=== PATIENT | female | born 1955 | race Caucasian/White ===

== ENCOUNTER → 2016-11-05 10:35 | Emergency (ER) | payer BC ==
[~2016-11-05 10:35] MED LIST: Aspirin Low Dose CHEW TAB* 81 MG PO ONE
[2016-11-05 11:20] LABS: Hematocrit 40 % (35-47); Hemoglobin 13.4 g/dl (12.0-16.0); Mean Corpuscular HGB Conc 34 g/dl (31-36); Mean Corpuscular Hemoglobin 34 pg (27-31); Mean Corpuscular Volume 99 fL (80-97); Mean Platelet Volume 9 um3 (7.4-10.4); Red Blood Count 4.01 10^6/ul (4.0-5.4); Red Cell Distribution Width 13 % (10.5-15)
[2016-11-05 11:22] LABS: Add Diff/Slide Review? Manual Diff Added; Comments Flag Yes
[2016-11-05 11:32] LABS: Albumin 4.2 g/dL (3.2-5.2); BUN/Creatinine Ratio 16.5 (8-20); Calcium 9.5 mg/dL (8.6-10.3); EGFR African American 94.8 (>60); EGFR Non-African American 73.7 (>60); Globulin 2.4 g/dL (2-4); Magnesium 2.3 mg/dL (1.9-2.7); Total Bilirubin 0.3 mg/dL (0.2-1.0); Total Protein 6.6 g/dL (6.4-8.9)
--- NOTE | 2016-11-05 11:35 | RAD ---
Indication: Chest pain. Single frontal view of the chest performed at 1108 hours was reviewed. Comparison is made with previous exam dated September 26, 2010. No mediastinal shift is noted. Heart is of normal size and configuration. Lung atkins appear clear. IMPRESSION: NO ACTIVE CARDIOPULMONARY DISEASE IS NOTED.
[2016-11-05 11:46] LABS: Add Path Review? YES; Eosinophils % 5 % (0-6); Immature Granulocytes 1 % (0-9); Neutrophil % 45 % (38-83); RBC Morphology Normal (Normal); Reactive Lymph % 3 % (0-6)
[2016-11-05 11:54] LABS: TSH (Thyroid Stimulating Horm) 1.6 mcIU/mL (0.34-5.60)
[2016-11-05 14:27] LABS: Urine Bacteria Absent (Absent); Urine Bilirubin Negative (Negative); Urine Glucose Negative (Negative); Urine Nitrite Negative (Negative)
[2016-11-05 15:09] VITALS: BP 106/63
--- NOTE | 2016-11-05 18:39 | ED ---
Hudson Lopez Thomas, scribed for Sreekanth Velazquez MD on 11/05/16 at 1059 . HPI Chest Pain - HPI Summary HPI Summary: The pt is a 61 y/o F presenting to the ED c/o CP that began today at 10:00 when she was sitting and reading an article about global warming. The episode of chest pain was intense for 3-5 minute and then gradually receded and it is resolved in the ED. The pain is described as sharp and a cramp. The pain did not migrate. The pain is aggravated and alleviated by nothing. The patient has treated the pain with nothing PLUG GROWER. Pt additionally c/o nausea (momentary). Pt denies diaphoresis, lightheadedness. She takes Lexapro 20mg. She drank quite a bit last night. PMHx: negative for cardiac disease. SHx: current smoker, weekly alcohol use. She is accompanied by her . - History of Current Complaint Chief Complaint: EDChestPainROMI Hx Obtained From: Patient, Family/Fx Artist - present Onset/Duration: Started Minutes Ago - onset today at 10:00, Resolved Timing: Lasting Minutes - 3-5 minutes duration Initial Severity: Severe Current Severity: None Pain Intensity: 0 Pain Scale Used: 0-10 Numeric Chest Pain Radiates: No Character: Tightness, Other: - Cramping Aggravating Factor(s): Nothing Alleviating Factor(s): Nothing Associated Signs and Symptoms: Positive: Chest Pain, Nausea - "momentary", Other : - NEG: lightheadedness. Negative: Diaphoresis - Allergy/Home Medications Allergies/Adverse Reactions: Allergies Allergy/AdvReac Type Severity Reaction Status Date / Time No Known Allergies Allergy Verified 10/06/15 16:18 PMH/Surg Hx/FS Hx/Imm Hx Previously Healthy: Yes Endocrine/Hematology History: Denies: Hx Diabetes Cardiovascular History: Denies: Hx Myocardial Infarction - Surgical History Surgery Procedure, Year, and Place: current smoker, hysterectomy Infectious Disease History: Denies: History Other Infectious Disease, Traveled Outside the [place] in Last 30 Days - Family History Known Family History: Positive: Diabetes - Social History Alcohol Use: Weekly Hx Substance Use: No Substance Use Type: Reports: None Hx Tobacco Use: Yes Smoking Status (MU): Current Every Day Smoker Review of Systems Negative: Fever, Skin Diaphoresis Positive: Chest Pain - intense for 3-5 minutes and then resolved in ED Positive: Nausea - "momentary" Neurological: Other - NEG: lightheadedness All Other Systems Reviewed And Are Negative: Yes Physical Exam - Summary Physical Exam Summary: VITAL SIGNS: Reviewed. GENERAL: ~Patient is a well-developed and nourished female who is lying comfortable in the stretcher. ~Patient is not in any acute respiratory distress. HEAD AND FACE: No signs of trauma. ~No ecchymosis, hematomas or skull depressions. No sinus tenderness. EYES: PERRLA, EOMI x 2, No injected conjunctiva, no nystagmus. EARS: Hearing grossly intact. Ear canals and tympanic membranes are within normal limits. MOUTH: Oropharynx within normal limits. NECK: Supple, trachea is midline, no adenopathy, no JVD, no carotid bruit, no c- spine tenderness, neck with full ROM. CHEST: Symmetric, no tenderness at palpation LUNGS: Clear to auscultation bilaterally. No wheezing or crackles. CVS: Regular rate and rhythm, S1 and S2 present, no murmurs or gallops appreciated. ABDOMEN: Soft, non-tender. No signs of distention. No rebound no guarding, and no masses palpated. Bowel sounds are normal. EXTREMITIES: FROM in all major joints, no edema, no cyanosis or clubbing. NEURO: Alert and oriented x 3. No acute neurological deficits. Speech is normal and follows commands. SKIN: Dry and warm Triage Information Reviewed: Yes Vital Signs On Initial Exam: Initial Vitals Temp Pulse Resp BP Pulse Ox 98.2 F 55 16 101/82 97 11/05/16 10:47 11/05/16 10:47 11/05/16 10:47 11/05/16 10:47 11/05/16 10:47 Vital Signs Reviewed: Yes Diagnostics - Vital Signs Vital Signs Temp Pulse Resp BP Pulse Ox 11/05/16 10:47 98.2 F 55 16 101/82 97 - Laboratory Lab Results: Lab Results 11/05/16 11/05/16 11/05/16 Range/Units 11:04 11:04 11:04 WBC 4.0 (3.5-10.8) 10^3/ul RBC 4.01 (4.0-5.4) 10^6/ul Hgb 13.4 (12.0-16.0) g/dl Hct 40 (35-47) % MCV 99 H (80-97) fL MCH 34 H (27-31) pg MCHC 34 (31-36) g/dl RDW 13 (10.5-15) % Plt Count 160 (150-450) 10^3/ul MPV 9 (7.4-10.4) um3 Immature Gran % (Auto) 1 (0-9) % Absolute Neuts (auto) 1.8 (1.5-7.7) 10^3/ul Absolute Lymphs (auto) 1.6 (1.0-4.8) 10^3/ul Absolute Monos (auto) 0.3 (0-0.8) 10^3/ul Absolute Eos (auto) 0.2 (0-0.6) 10^3/ul Absolute Basos (auto) 0 (0-0.2) 10^3/ul Absolute Nucleated RBC Not Reportable Neutrophils % 45 (38-83) % Band Neutrophils % 1 (0-8) % Lymphocytes % 37 (25-47) % Reactive Lymphs % 3 (0-6) % Monocytes % 8 (0-13) % Eosinophils % 5 (0-6) % Basophils % 1 (0-2) % Normal RBC Morphology Normal (Normal) Hem Pathologist Commnt Sodium 137 (133-145) mmol/L Potassium 4.0 (3.5-5.0) mmol/L Chloride 107 (101-111) mmol/L Carbon Dioxide 24 (22-32) mmol/L Anion Gap 6 (2-11) mmol/L BUN 13 (6-24) mg/dL Creatinine 0.79 (0.51-0.95) mg/dL Est GFR ( Amer) 94.8 (>60) Est GFR (Non-Af Amer) 73.7 (>60) BUN/Creatinine Ratio 16.5 (8-20) Glucose 101 H (70-100) mg/dL Calcium 9.5 (8.6-10.3) mg/dL Magnesium 2.3 (1.9-2.7) mg/dL Total Bilirubin 0.30 (0.2-1.0) mg/dL AST 22 (13-39) U/L ALT 17 (7-52) U/L Alkaline Phosphatase 52 (34-104) U/L Total Creatine Kinase 147 (10-223) U/L CK-MB (CK-2) 2.7 (0.6-6.3) ng/mL Troponin I 0.00 (<0.04) ng/mL B-Natriuretic Peptide 23 ( - 100) pg/mL Total Protein 6.6 (6.4-8.9) g/dL Albumin 4.2 (3.2-5.2) g/dL Globulin 2.4 (2-4) g/dL Albumin/Globulin Ratio 1.8 (1-3) TSH 1.60 (0.34-5.60) mcIU/mL Urine Color Urine Appearance Urine pH (5-9) Ur Specific Hay[place] (1.010-1.030) Urine Protein (Negative) Urine Ketones (Negative) Urine Blood (Negative) Urine Nitrate (Negative) Urine Bilirubin (Negative) Urine Urobilinogen (Negative) Ur Leukocyte Esterase (Negative) Urine WBC (Auto) (Absent) Urine RBC (Auto) (Absent) Urine Bacteria (Absent) Urine Glucose (Negative) Urine Ascorbic Acid (Negative) 11/05/16 11/05/16 Range/Units 13:59 13:59 WBC (3.5-10.8) 10^3/ul RBC (4.0-5.4) 10^6/ul Hgb (12.0-16.0) g/dl Hct (35-47) % MCV (80-97) fL MCH (27-31) pg MCHC (31-36) g/dl RDW (10.5-15) % Plt Count (150-450) 10^3/ul MPV (7.4-10.4) um3 Immature Gran % (Auto) (0-9) % Absolute Neuts (auto) (1.5-7.7) 10^3/ul Absolute Lymphs (auto) (1.0-4.8) 10^3/ul Absolute Monos (auto) (0-0.8) 10^3/ul Absolute Eos (auto) (0-0.6) 10^3/ul Absolute Basos (auto) (0-0.2) 10^3/ul Absolute Nucleated RBC Neutrophils % (38-83) % Band Neutrophils % (0-8) % Lymphocytes % (25-47) % Reactive Lymphs % (0-6) % Monocytes % (0-13) % Eosinophils % (0-6) % Basophils % (0-2) % Normal RBC Morphology (Normal) Hem Pathologist Commnt Sodium (133-145) mmol/L Potassium (3.5-5.0) mmol/L Chloride (101-111) mmol/L Carbon Dioxide (22-32) mmol/L Anion Gap (2-11) mmol/L BUN (6-24) mg/dL Creatinine (0.51-0.95) mg/dL Est GFR ( Amer) (>60) Est GFR (Non-Af Amer) (>60) BUN/Creatinine Ratio (8-20) Glucose (70-100) mg/dL Calcium (8.6-10.3) mg/dL Magnesium (1.9-2.7) mg/dL Total Bilirubin (0.2-1.0) mg/dL AST (13-39) U/L ALT (7-52) U/L Alkaline Phosphatase (34-104) U/L Total Creatine Kinase (10-223) U/L CK-MB (CK-2) (0.6-6.3) ng/mL Troponin I 0.00 (<0.04) ng/mL B-Natriuretic Peptide ( - 100) pg/mL Total Protein (6.4-8.9) g/dL Albumin (3.2-5.2) g/dL Globulin (2-4) g/dL Albumin/Globulin Ratio (1-3) TSH (0.34-5.60) mcIU/mL Urine Color Yellow Urine Appearance Clear Urine pH 5.0 (5-9) Ur Specific [place] 1.020 (1.010-1.030) Urine Protein Negative (Negative) Urine Ketones Trace H (Negative) Urine Blood 3+ H (Negative) Urine Nitrate Negative (Negative) Urine Bilirubin Negative (Negative) Urine Urobilinogen Negative (Negative) Ur Leukocyte Esterase Negative (Negative) Urine WBC (Auto) Absent (Absent) Urine RBC (Auto) 2+(6-10/hpf) H (Absent) Urine Bacteria Absent (Absent) Urine Glucose Negative (Negative) Urine Ascorbic Acid * H (Negative) Result Diagrams: 11/05/16 11:04 11/05/16 11:04 Lab Statement: Any lab studies that have been ordered have been reviewed, and results considered in the medical decision making process. - Radiology CXR Xray Interpretation: No Acute Changes - CXR no active cardiopulmonary disease is noted. ED Physician has reviewed this report and agrees. Radiology Interpretation Completed By: Radiologist - EKG 10:56 Cardiac Rate: Bradycardia - 53 BPM EKG Interpretation: Sinus bradycardia. Nml Neal. TWI in III. No ST Elevations. Chest Pain Course/Dx - Course Assessment/Plan: The pt is a 61 y/o F presenting to the ED c/o CP that began today at 10:00 when she was sitting and reading an article about global warming. The episode of chest pain was intense for 3-5 minute and then gradually receded and it is resolved in the ED. The pain is described as sharp and a cramp. The pain did not migrate. The pain is aggravated and alleviated by nothing. The patient has treated the pain with nothing PLUG GROWER. Pt additionally c/o nausea (momentary). Pt denies diaphoresis, lightheadedness. She takes Lexapro 20mg. She drank quite a bit last night. PMHx: negative for cardiac disease. SHx: current smoker, weekly alcohol use. She is accompanied by her . Test results are without significant abnormality. Troponin #1 is 0.00 and troponin #2 is 0.00. Since the patient doesnt have any comorbidities, I can comfortably say that the patient doesnt have an acute coronary syndrome. The patients chest pain only lasted for 3-5 minutes and then resolved. We discharged the patient home with follow up by PCP for further workup and management. The patients EKG and CXR are without acute abnormalities. At this point, the patient is asymptomatic and is going to be discharged home with follow up by PCP. She is hemodynamically stable and alert and oriented x3. - Chest Pain Differential Diagnosis/HQI/PQRI: ACS, Angina, CHF, Chest Wall, GI Disease, Lower Respiratory Infection - Diagnoses Provider Diagnoses: Chest pain Discharge - Discharge Plan Condition: Stable Disposition: HOME Patient Education Materials: Chest Pain (ED) Referrals: Mansi Rushing MD [Primary Care Provider] - 3 Days The documentation as recorded by the Hudson warner Thomas accurately reflects the service I personally performed and the decisions made by , Sreekanth Velazquez MD.
== END | disposition home or self-care (01) ==
LOC: ED 10:35
DX: R07.9 Chest pain, unspecified (principal); R11.0 Nausea; F17.210 Nicotine dependence, cigarettes, uncomplicated
CPT/HCPCS: 36415; 71010; 80053; 81003; 81015; 82550; 82553; 83735; 83880; 84443; 84484; 85025; 85060; 93005; 99284

== ENCOUNTER 2017-03-05 19:05 | Inpatient (IN) | payer BC, OTHER ==
[2017-03-05 21:44] LABS: ABS Basophils 0.1 10^3/ul (0-0.2); ABS Eosinophils 0.2 10^3/ul (0-0.6); ABS Lymphocytes 2.8 10^3/ul (1.0-4.8); ABS Monocytes 0.4 10^3/ul (0-0.8); ABS Neutrophils 3.7 10^3/ul (1.5-7.7); ABS Nucleated RBC 0 10^3/ul; Eosinophil % 2.4 % (0-6); Hematocrit 43 % (35-47); Hemoglobin 14.6 g/dl (12.0-16.0); Lymphocyte % 39.6 % (25-47); Mean Corpuscular HGB Conc 34 g/dl (31-36); Mean Corpuscular Hemoglobin 34 pg (27-31); Mean Corpuscular Volume 99 fL (80-97); Mean Platelet Volume 9 um3 (7.4-10.4); Nucleated Red Blood Cells % 0.1; Platelet Count 287 10^3/ul (150-450); Red Blood Count 4.33 10^6/ul (4.0-5.4); Red Cell Distribution Width 13 % (10.5-15); White Blood Count 7.2 10^3/ul (3.5-10.8)
[2017-03-05 21:55] LABS: EGFR Non-African American 72.4 (>60); INR 0.86 (0.77-1.02)
--- NOTE | 2017-03-06 04:48 | ED ---
Georgiana Lopez Nilda, scribed for Mario Dinero MD on 03/06/17 at 0425 . Progress - Progress Note Progress Note: This pt is signed out by Dr. Rose, pending dispo, awaiting MHE. Pt was evaluated by Mental Health who will admit pt with dx of depression. - Consult/PCP Time Called: 19:30 Course/Dx - Course Course Of Treatment: This pt is signed out by Dr. Rose, pending dispo, awaiting MHE. Pt was evaluated by Mental Health who will admit pt with dx of depression. - Diagnoses Provider Diagnoses: Depression The documentation as recorded by the Georgiana warner Nilda accurately reflects the service I personally performed and the decisions made by Rosette abernathy Abdul, MD.
[2017-03-06] MEDS ORDERED: hydrOXYzine HCL TAB* 25 MG ONE (05:43)
[2017-03-06] MEDS ORDERED: Al Hydrox/Mg Hydrox/Simet LIQ* 30 ML UDC PO PRN (06:38)
[2017-03-06] MEDS ORDERED: Mouth Piece, Nicotine* 1 EACH CARTRIDGE INH SCH (06:38)
[2017-03-06] MEDS ORDERED: Acetaminophen TAB* 325 MG PO PRN (06:38)
[2017-03-06] MEDS ORDERED: Nicotine Inhaler* 10 MG AMP INH PRN (06:38)
[2017-03-06] MEDS ORDERED: Nicotine GUM* 2 MG PO PRN (06:38)
[2017-03-06] MEDS ORDERED: hydrOXYzine HCL TAB* 25 MG PO PRN (06:39)
[2017-03-06] MEDS: Vitamin THERAPEUTIC TAB PO SCH (09:54)
--- NOTE | 2017-03-06 11:15 | PN ---
MHU: Group Therapy Note - Service Type Service Type: [id number] Group Psychotherapy - Cognitive Behavioral Group Therapy ( CBT):Patient was attentive and participatory in CBT programming this morning, and remained in good behavioral control. Patient expressed positive insights regarding relevant treatment interventions and goals.
--- NOTE | 2017-03-06 12:50 | ADMNOTE ---
History - Objective HPI: HISTORY AND PHYSICAL Psychiatric Attending History and Physical NAME: Alexia Paez : 1955 AGE: 62 PROVIDER: Dr. Enzo Pleitez DATE OF ADMISSION: 03/06/2017 JUSTIFICATION FOR ADMISSION: Patient has been expressiing suicidal ideation and a plan to jump from the [place]. Patient is a danger to self and requires imminent inpatient psychiatric admission in order to provide for her safety and stabalize her mental status. CHIEF COMPLAINT:"just barely crawling through everyday" HISTORY OF THE PRESENT ILLNESS: Patient is a 62 year old woman with a history of alcohol dependence and recurrent depression who has been increasingly depressed for past two months with daily suicidal ideation for past month. Patient is currently taking lexapro 20 mg which she has been on for about 2 years. She reports that the medication used to be very effective in treating her depressive symptoms and also caused suicidal thoughts to kate as well. She feels the medication is no longer effectively treating her depression. Patient has been drinking daily in the evening for past five years. This pattern has changed in past month as she finds herself drinking during the day as well. She reports drinking 6 beers per day and also up to a full bottle of wine. Patient endorses the following symptoms: loss of interest, difficulty concentrating, low energy, lack of motivation, staying in bed much of the day, tendency to isolate, reluctance to go out in public, increased daytime somnolence, and increased alcohol consumption. Patient reports that she has been ruminating daily about suicide for past two weeks and on day prior to admissin she had finally settled on a plan for ending her life (jumping into a gorge). On the day of admission patient posted suicidal statements on facebook announding that she finally had figured out how she was going to leave the world. her close friend who lives 3 houses away immediately called her Nurse Pracitioner Re Torres and the two women took patient to the hospital. Patient also left a suicide note for her which he found upon returning home from work. Stressors include parent child conflict (son blames mother for his problems and can be verbally abusive), marital disagreement with with regard to where they will spend holiday, bad weather, recent upper respiratory infection treated with prednisone and azithromycin. PAST PSYCHIATRIC HISTORY: no past psychiatric hospitalizations. no history of suicide attempt. Reports history of recurrent depression her whole life. Began taking Lexapro about 8 years ago. It was effective and then she stopped it for several years but over time her depression and suicidal ideation returned. She got her PCP to restart the Lexapro about two years ago. It seemed to help initially but over past year despite taking it on a daily basis, her depression has returned. she admits to missing lexapro "once in a while". patient had trial of prozac in distant past. she recently began seeing HEAD OF COMMISSION DEPARTMENT Re Torres who prescribed her Naltrexone which patient never took. SUBSTANCE ABUSE HISTORY: denies drug use now or in past + cigarette smoker 1 PPD X 30 years Alcohol use/abuse X 20 years. currently drinks daily 6 beers and wine up to a bottle a day PAST MEDICAL HISTORY: Herniated L5 disc with intermittent back pain no other medical problems CURRENT MEDICATIONS: Lexapro 20 mg daily ALLERGIES: No Known Drug Allergies FAMILY PSYCHIATRIC HISTORY: Father: alcoholic Mother and Maternal Grandmother: suffered with depression FAMILY/PSYCHOSOCIAL HISTORY: Grew up in [place] and graduated high school. got bachelors at [employer] in [employer]. Got her masters degree in [employer] at age 39. . 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 Has one son age 21 who attends college in [place]. Son has history of multiple medical and psychiatric difficulties(ADHD,bipolar d/o, alcohol abuse, scoliosis, obesity) patient denies legal problems. she denies history of trauma. REVIEW OF SYSTEMS: all noncontributory per hospitalist Dr. Rk Kitchen's H and P completed on 03/05/2016 in ED PHYSICAL EXAMINATION: UNREMARKABLE (NORMAL PHYSICAL EXAMINATION) per hospitalist Dr. Rk Kitchen's H and P completed on 03/05/2016 in ED. MENTAL STATUS EXAMINATION: well developed and nourished 62 yo woman who looks her stated age. dressed casually and with good hygiene patient is well related and makes good eye contact. speech is articulate and of normal rate, volume, spontaneity and fluency. Mood: dysphoric Affect is full range and congruent with mood. Thought processes is organized and logical Thought content: no evidence of AH,VH,paranoia, delussions. patient endorses anergia, amotivation, anhedonia, daytime somnolence, poor concentration, rumination about suicide with recent plan to jump into a gorge. patient contracts for safety on the floor and has no intention at present to harm self. +hopelessness and help lessness. Alert and fully oreinted. clear sensorium. above average intelligence. Insight and judgment intact. LABORATORY DATA: Laboratory Last Values WBC 7.2 10^3/ul (3.5-10.8) 03/05/17 21:04 RBC 4.33 10^6/ul (4.0-5.4) 03/05/17 21:04 Hgb 14.6 g/dl (12.0-16.0) 03/05/17 21:04 Hct 43 % (35-47) 03/05/17 21:04 MCV 99 fL (80-97) H 03/05/17 21:04 MCH 34 pg (27-31) H 03/05/17 21:04 MCHC 34 g/dl (31-36) 03/05/17 21:04 RDW 13 % (10.5-15) 03/05/17 21:04 Plt Count 287 10^3/ul (150-450) 03/05/17 21:04 MPV 9 um3 (7.4-10.4) 03/05/17 21:04 Neut % (Auto) 51.3 % (38-83) 03/05/17 21:04 Lymph % (Auto) 39.6 % (25-47) 03/05/17 21:04 Ogle % (Auto) 5.4 % (1-9) 03/05/17 21:04 Eos % (Auto) 2.4 % (0-6) 03/05/17 21:04 Baso % (Auto) 1.3 % (0-2) 03/05/17 21:04 Absolute Neuts (auto) 3.7 10^3/ul (1.5-7.7) 03/05/17 21:04 Absolute Lymphs (auto) 2.8 10^3/ul (1.0-4.8) 03/05/17 21:04 Absolute Monos (auto) 0.4 10^3/ul (0-0.8) 03/05/17 21:04 Absolute Eos (auto) 0.2 10^3/ul (0-0.6) 03/05/17 21:04 Absolute Basos (auto) 0.1 10^3/ul (0-0.2) 03/05/17 21:04 Absolute Nucleated RBC 0 10^3/ul 03/05/17 21:04 Nucleated RBC % 0.1 03/05/17 21:04 INR (Anticoag Therapy) 0.86 (0.77-1.02) 03/05/17 21:04 Sodium 140 mmol/L (133-145) 03/05/17 21:04 Potassium 4.1 mmol/L (3.5-5.0) 03/05/17 21:04 Chloride 107 mmol/L (101-111) 03/05/17 21:04 Carbon Dioxide 27 mmol/L (22-32) 03/05/17 21:04 Anion Gap 6 mmol/L (2-11) 03/05/17 21:04 BUN 13 mg/dL (6-24) 03/05/17 21:04 Creatinine 0.80 mg/dL (0.51-0.95) 03/05/17 21:04 Est GFR ( Amer) 93.2 (>60) 03/05/17 21:04 Est GFR (Non-Af Amer) 72.4 (>60) 03/05/17 21:04 BUN/Creatinine Ratio 16.3 (8-20) 03/05/17 21:04 Glucose 90 mg/dL (70-100) 03/05/17 21:04 Lactic Acid 1.3 mmol/L (0.5-2.0) 03/05/17 21:04 Calcium 9.2 mg/dL (8.6-10.3) 03/05/17 21:04 Total Bilirubin 0.50 mg/dL (0.2-1.0) 03/05/17 21:04 AST 20 U/L (13-39) 03/05/17 21:04 ALT 20 U/L (7-52) 03/05/17 21:04 Alkaline Phosphatase 55 U/L (34-104) 03/05/17 21:04 Total Protein 6.9 g/dL (6.4-8.9) 03/05/17 21:04 Albumin 4.3 g/dL (3.2-5.2) 03/05/17 21:04 Globulin 2.6 g/dL (2-4) 03/05/17 21:04 Albumin/Globulin Ratio 1.7 (1-3) 03/05/17 21:04 TSH 1.94 mcIU/mL (0.34-5.60) 03/05/17 21:04 Salicylates < 2.50 mg/dL (<30) 03/05/17 21:04 Acetaminophen < 15 mcg/mL 03/05/17 21:04 Serum Alcohol 197 mg/dL (<10) H 03/05/17 21:04 IMPRESSION: 62 yo woman with history of recurrent major depression and Alcohol Dependence presents with major depressive episode, daily alcohol use, and suicidal ideation with intent and plan. Patient 's is very worried about her mental status and her safety. patient was admitted to psychiatric inpatient unit on 939 involuntary status as she is at high risk for harming herself and [facility] provide for her safety and to treat her mental disorder. no evidence of alcohol withdrawal as patient has no tachycardia or hypertensin and denies any signs or symptoms of alcohol withdrawal.. DIAGNOSES: Major Depressive Disorder recurrent severe Alcohol Dependence moderate PLAN: Admit to [facility] on q 15 min observation status milieu, individual and group therapy patient is 939 involuntary status at this time will set up meeting with to increase data base Start Effexor XR 75 mg QAM and titrate up to 225 mg daily Start Wellbutrin SR 150 mg in a few days as synergy STart Naltrexone 50 mg qhs to reduce alcohol craving. patient's cbc shows megaloblastic indices with mcv of 99. will send B12 and folate levels send Free T4 as well. Hydroxyzine 25 mg q4h prn anxiety nicotrol prn for nicotine repplacement therapy add nicorette gum and patch as well multivitamin dailly
[2017-03-06] MEDS ORDERED: Venlafaxine EXT RELEASE CAP* 75 MG PO ONE (14:50)
[2017-03-06] MEDS: Naltrexone TAB* 50 MG TAB PO SCH (20:48)
[2017-03-07] MEDS: Vitamin THERAPEUTIC TAB PO SCH (08:50)
[2017-03-07] MEDS ORDERED: Venlafaxine EXT RELEASE CAP* 75 MG PO ONE (09:00)
[2017-03-07] MEDS ORDERED: Venlafaxine EXT RELEASE CAP* 37.5 MG PO ONE (09:00)
[2017-03-07] MEDS ORDERED: Pneumococcal *Vac Polyvalent 0.5 ML VIAL IM ONE (09:00)
--- NOTE | 2017-03-07 11:34 | PN ---
MHU: Group Therapy Note - Service Type Service Type: [id number] Group Psychotherapy - Cognitive Behavioral Group Therapy ( CBT):Patient was attentive and participatory in CBT programming this morning, and remained in good behavioral control. Patient expressed positive insights regarding relevant treatment interventions and goals.
--- NOTE | 2017-03-07 14:07 | PN ---
Subjective - Subjective Subjective: Psychiatric Attending Progress Note Reviewed nursing notes and spoke with staff about patient's status/progress on the unit. Patient has been attending all groups and has been highly motivated in terms of particpating in her recovery. I met with patient X 45 minutes this afternoon She reports sleeping very well last night. she had scalp tenderness which resolved. denies nausea,visual disturbance, N,V,D, sob, palpitations, numbness, headache. thus far she is tolerating rapid titration of effexor XR well denies withdrawal symptoms vitals stable MSE: well related. neatly dressed. good hygiene speech normal rate and volume. fluent and spontaneous normal psychomotor behavior mood: remains dysphoric affect full range Thought process: organized and logical Thought content: patient denies any SI today. still hopeless, sense of helplessness. endorses anhedonia, anergia, amotivation, poor concentration, loss of interest, lethargy Alert and fully oriented. Insight and judgment good Impression; Alcohol Dependence Major Depressive Disorder recurrent severe Plan: Increase Effexor to 150 mg qam Wellbutrin XL 150 mg QAM starting 03/09/2017 Naltrexone 50 mg qhs discharge plan is home with outpatient therapy and med. management not ready for discharge as medication being titrated and patient remains hopeless, depressed and at high risk for self injury Plan - Plan Treatment Plan: Name: IRA DEY Birthdate: 1955 [id number] Medications: Current Medications Acetaminophen (Tylenol Tab*) 650 mg PO Q4H PRN PRN Reason: PAIN or TEMP > 101 F Al Hydrox/Mg Hydrox/Simethicone (Maalox Plus*) 30 ml PO Q4H PRN PRN Reason: INDIGESTION Bupropion HCl (Wellbutrin Xl *) 150 mg PO DAILY@09 [facility] PRN Reason: Protocol Device (Nicotine Mouth Piece*) 1 each INH .[facility]TRIDGE NOAH Hydroxyzine HCl (Atarax Tab*) 25 mg PO Q6H PRN PRN Reason: ANXIETY Last Admin: 03/06/17 05:45 Dose: 25 mg Multivitamins (Theragran Tab*) 1 tab PO DAILY NOAH Last Admin: 03/07/17 08:50 Dose: 1 tab Naltrexone HCl (Naltrexone Tab*) 50 mg PO BEDTIME [facility] PRN Reason: Protocol Last Admin: 03/06/17 20:48 Dose: 50 mg Nicotine (Nicotine Inhaler*) 10 mg INH Q2H PRN PRN Reason: CRAVING Nicotine Polacrilex (Nicotine Gum*) 2 mg PO Q2H PRN PRN Reason: CRAVING Venlafaxine HCl (Effexor Xr Cap*) 150 mg PO DAILY@09 NOAH
[2017-03-07] MEDS: Naltrexone TAB* 50 MG TAB PO SCH (20:56)
--- NOTE | 2017-03-08 08:40 | PN ---
MHU: Group Therapy Note - Service Type Service Type: [id number] Group Psychotherapy - Medication Education Group: Patient was attentive and participatory in group, and remained in good behavioral control. Patient expressed positive insights regarding relevant treatment interventions. Patient stated understanding of material discussed and had appropriate questions.
[2017-03-08] MEDS: Venlafaxine EXT RELEASE CAP* 75 MG PO SCH (09:29)
[2017-03-08] MEDS: Vitamin THERAPEUTIC TAB PO SCH (09:29)
--- NOTE | 2017-03-08 11:43 | PN ---
MHU: Group Therapy Note - Service Type Service Type: [id number] Group Psychotherapy - Cognitive Behavioral Group Therapy ( CBT):Patient was attentive and participatory in CBT programming this morning, and remained in good behavioral control. Patient expressed positive insights regarding relevant treatment interventions and goals.
--- NOTE | 2017-03-08 14:28 | PN ---
Subjective - Subjective Subjective: Psychiatric Attending progress note attending groups. cooperative and compliant motivated to learn about recovery process. met with patient during visiting hours and met her and [employer] PP CONSULTANT prescriber who were both visiting. Patient reports that she did have night sweats last night. I explained that this was likely from effexor. no other side effects reported sleeping well at night MSE: well related. speech normal rate and volume mood: dysphoric affect: full range TP organized TC: reports no suicidal ideation today denies psychotic symptoms Insight and judgment intact Impression: MDD severe recurrent Plan: continue Effexor XR 150 mg QAM Add Wellbutrin XL 150 mg beginning on saturday am cont. naltexone 50 mg qhs
--- NOTE | 2017-03-08 15:54 | ED ---
Opal Lopez Gabriel scribed for Rk Rose MD on 03/05/17 at 2058 . Psychiatric Complaint - HPI Summary HPI Summary: This patient is a 62 year old F presenting to [facility] with a chief complaint of SI. Patient states she has SI thought that turned into possibilities. She has had these thoughts before and has never been admitted. She has drunk alcohol today and states she does daily. Sleeps well. Takes SSRI daily and has for years. - History Of Current Complaint Chief Complaint: EDMentalHealth Time Seen by Provider: 03/05/17 20:41 Hx Obtained From: Patient Onset/Duration: Still Present Timing: Constant Severity Initially: Moderate Severity Currently: Moderate Character: Depressed Has Suicidal: Reports: Thoughts Has Homicidal: Denies: Thoughts, With A Plan - Allergies/Home Medications Allergies/Adverse Reactions: Allergies Allergy/AdvReac Type Severity Reaction Status Date / Time No Known Allergies Allergy Verified 10/06/15 16:18 Home Medications: Home Medications Naltrexone TAB* 50 mg PO DAILY 03/06/17 [History Confirmed 03/06/17] buPROPion SR TAB* [Wellbutrin SR TAB*] 150 mg PO BID 03/06/17 [History Confirmed 03/06/17] PMH/Surg Hx/FS Hx/Imm Hx Endocrine/Hematology History: Denies: Hx Diabetes Cardiovascular History: Denies: Hx Myocardial Infarction EENT History: Denies: Hx Deafness, Hx Hearing Aid Psychiatric History: Reports: Hx Anxiety, Hx Depression - Surgical History Surgery Procedure, Year, and Place: current smoker, hysterectomy Infectious Disease History: No Infectious Disease History: Denies: History Other Infectious Disease, Traveled Outside the [place] in Last 30 Days - Family History Known Family History: Positive: Diabetes Negative: Renal Disease, Respiratory Disease, Seizure Disorder - Social History Lives: With Family Alcohol Use: Daily Alcohol Amount: 4 beers and 1 bottle of wine Hx Substance Use: No Substance Use Type: Reports: None Hx Tobacco Use: Yes Smoking Status (MU): Heavy Every Day Tobacco Smoker Review of Systems Negative: Fever, Chills Negative: Erythema Negative: Sore Throat Negative: Chest Pain Negative: Shortness Of Breath, Cough Negative: Abdominal Pain, Vomiting, Nausea Negative: dysuria, hematuria Negative: Myalgia, Edema Negative: Rash Neurological: Negative - dizziness Positive: Other - SI All Other Systems Reviewed And Are Negative: Yes Physical Exam - Summary Physical Exam Summary: Constitutional: Well-developed, Well-nourished, Alert. (-) Distressed Skin: Warm, Dry HENT: Normocephalic; Atraumatic Eyes: Conjunctiva normal Neck: Musculoskeletal ROM normal neck. (-) JVD, (-) Stridor, (-) Tracheal deviation Cardio: Rhythm regular, rate normal, Heart sounds normal; Intact distal pulses; The pedal pulses are 2+ and symmetric. Radial pulses are 2+ and symmetric. (-) Murmur Pulmonary/Chest wall: Effort normal. (-) Respiratory distress, (-) Wheezes, (-) Rales Abd: Soft, (-) Tenderness, (-) Distension, (-) Guarding, (-) Rebound Musculoskeletal: (-) Edema Lymph: (-) Cervical adenopathy Neuro: Alert, Oriented x3 Psych: Mood and affect Normal Triage Information Reviewed: Yes Vital Signs On Initial Exam: Initial Vitals Temp Pulse Resp BP Pulse Ox 98.1 F 76 22 120/75 97 03/05/17 19:12 03/05/17 19:12 03/05/17 19:12 03/05/17 19:12 03/05/17 19:12 Vital Signs Reviewed: Yes - [place] Coma Scale Coma Scale Total: 15 Diagnostics - Vital Signs Vital Signs Temp Pulse Resp BP Pulse Ox 03/05/17 19:12 98.1 F 76 22 120/75 97 - Laboratory Lab Results: Lab Results 03/05/17 03/05/17 03/05/17 Range/Units 21:04 21:04 21:04 WBC 7.2 (3.5-10.8) 10^3/ul RBC 4.33 (4.0-5.4) 10^6/ul Hgb 14.6 (12.0-16.0) g/dl Hct 43 (35-47) % MCV 99 H (80-97) fL MCH 34 H (27-31) pg MCHC 34 (31-36) g/dl RDW 13 (10.5-15) % Plt Count 287 (150-450) 10^3/ul MPV 9 (7.4-10.4) um3 Neut % (Auto) 51.3 (38-83) % Lymph % (Auto) 39.6 (25-47) % Pope % (Auto) 5.4 (1-9) % Eos % (Auto) 2.4 (0-6) % Baso % (Auto) 1.3 (0-2) % Absolute Neuts (auto) 3.7 (1.5-7.7) 10^3/ul Absolute Lymphs (auto) 2.8 (1.0-4.8) 10^3/ul Absolute Monos (auto) 0.4 (0-0.8) 10^3/ul Absolute Eos (auto) 0.2 (0-0.6) 10^3/ul Absolute Basos (auto) 0.1 (0-0.2) 10^3/ul Absolute Nucleated RBC 0 10^3/ul Nucleated RBC % 0.1 INR (Anticoag Therapy) 0.86 (0.77-1.02) Sodium 140 (133-145) mmol/L Potassium 4.1 (3.5-5.0) mmol/L Chloride 107 (101-111) mmol/L Carbon Dioxide 27 (22-32) mmol/L Anion Gap 6 (2-11) mmol/L BUN 13 (6-24) mg/dL Creatinine 0.80 (0.51-0.95) mg/dL Est GFR ( Amer) 93.2 (>60) Est GFR (Non-Af Amer) 72.4 (>60) BUN/Creatinine Ratio 16.3 (8-20) Glucose 90 (70-100) mg/dL Lactic Acid (0.5-2.0) mmol/L Calcium 9.2 (8.6-10.3) mg/dL Total Bilirubin 0.50 (0.2-1.0) mg/dL AST 20 (13-39) U/L ALT 20 (7-52) U/L Alkaline Phosphatase 55 (34-104) U/L Total Protein 6.9 (6.4-8.9) g/dL Albumin 4.3 (3.2-5.2) g/dL Globulin 2.6 (2-4) g/dL Albumin/Globulin Ratio 1.7 (1-3) Vitamin B12 473 (180-914) pg/mL Folate 9.94 (>3.99) ng/mL TSH 1.94 (0.34-5.60) mcIU/mL Free T4 0.82 (0.61-1.12) ng/dL Salicylates < 2.50 (<30) mg/dL Acetaminophen < 15 mcg/mL Serum Alcohol 197 H (<10) mg/dL 03/05/17 Range/Units 21:04 WBC (3.5-10.8) 10^3/ul RBC (4.0-5.4) 10^6/ul Hgb (12.0-16.0) g/dl Hct (35-47) % MCV (80-97) fL MCH (27-31) pg MCHC (31-36) g/dl RDW (10.5-15) % Plt Count (150-450) 10^3/ul MPV (7.4-10.4) um3 Neut % (Auto) (38-83) % Lymph % (Auto) (25-47) % Pope % (Auto) (1-9) % Eos % (Auto) (0-6) % Baso % (Auto) (0-2) % Absolute Neuts (auto) (1.5-7.7) 10^3/ul Absolute Lymphs (auto) (1.0-4.8) 10^3/ul Absolute Monos (auto) (0-0.8) 10^3/ul Absolute Eos (auto) (0-0.6) 10^3/ul Absolute Basos (auto) (0-0.2) 10^3/ul Absolute Nucleated RBC 10^3/ul Nucleated RBC % INR (Anticoag Therapy) (0.77-1.02) Sodium (133-145) mmol/L Potassium (3.5-5.0) mmol/L Chloride (101-111) mmol/L Carbon Dioxide (22-32) mmol/L Anion Gap (2-11) mmol/L BUN (6-24) mg/dL Creatinine (0.51-0.95) mg/dL Est GFR ( Amer) (>60) Est GFR (Non-Af Amer) (>60) BUN/Creatinine Ratio (8-20) Glucose (70-100) mg/dL Lactic Acid 1.3 (0.5-2.0) mmol/L Calcium (8.6-10.3) mg/dL Total Bilirubin (0.2-1.0) mg/dL AST (13-39) U/L ALT (7-52) U/L Alkaline Phosphatase (34-104) U/L Total Protein (6.4-8.9) g/dL Albumin (3.2-5.2) g/dL Globulin (2-4) g/dL Albumin/Globulin Ratio (1-3) Vitamin B12 (180-914) pg/mL Folate (>3.99) ng/mL TSH (0.34-5.60) mcIU/mL Free T4 (0.61-1.12) ng/dL Salicylates (<30) mg/dL Acetaminophen mcg/mL Serum Alcohol (<10) mg/dL Result Diagrams: 03/05/17 21:04 03/05/17 21:04 Lab Statement: Any lab studies that have been ordered have been reviewed, and results considered in the medical decision making process. Course/Dx - Differential Dx/Clinical Impression Provider Diagnosis: Depression Discharge - Discharge Plan Condition: Good Disposition: PSYCHIATRIC FACILITY-[facility] [place] The documentation as recorded by the Opal warner Gabriel accurately reflects the service I personally performed and the decisions made by , Rk Rose MD.
[2017-03-08] MEDS: Naltrexone TAB* 50 MG TAB PO SCH (20:09)
[2017-03-09] MEDS: Venlafaxine EXT RELEASE CAP* 75 MG PO SCH (08:31)
[2017-03-09] MEDS: BuPROPion XL* 150 MG TAB.XL PO SCH (08:31)
[2017-03-09] MEDS: Vitamin THERAPEUTIC TAB PO SCH (08:31)
--- NOTE | 2017-03-09 14:24 | PN ---
Subjective - Subjective Date of Service: 03/09/17 Service Type: 60310 Hosp care 15 min low complexity Subjective: Ira is calm and pleasant, sitting comfortably in her room visiting with her . She is euthymic today, feeling much better than the time of admission and tolerating her medications well. She denies SI and has no complaints. She states that she is hoping for discharge to home soon. Objective - Appearance Appearance: Well Developed/Nourished Dysmorphic Features: No Hygiene: Normal Grooming: Well Kept - Behavior Psychomotor Activities: Normal Exhibits Abnormal Movement: No - Attitude and Relatedness Attitude and Relatedness: Cooperative Eye Contact: Good - Speech Quality: Unpressured Latencies: Normal Quantity: Appropriate - Mood Patient's Decription of Mood: "Good" - Affect Observed Affect: Good Affect Consistent with: Euthymia - Thought Process Patient's Thought Process: Coherent Thought Content: No Passive Wish, No Suicidal Planning, No Homicidal Ideation, No Paranoid Ideation - Sensorium Experiencing Hallucinations: No, Sensorium is Clear Type of Hallucinations: Visual: No, Auditory: No, Command: No - Level of Consciousness Level of Consciousness: Alert Orientation: Yes Intact, Yes Orientated to Time, Yes Orientated to Place, Yes Orientated to Person - Impulse Control Impulse Control: Intact - Insight and Judgement Insight and Judgement: Good - Group Participation Particating in Group Activities: Yes - Medication Management Medication Management Adherence: Yes Assessment - Assessment Merits Inpatient Hospitalization: Consolidate Improvements, Pending Safe DC Plan Inpatient DSM-IV Dx: MDD, recurrent, severe without psychotic features Clinical Impression: 62 y.o. , white female with a history of depression admitted secondary to suicidal ideations. Plan - Plan Treatment Plan: Name: IAR DEY Birthdate: 1955 [id number] The patient is improving with milieu treatment and med management with bupropion XL, venlafaxine XR and oral naltrexone. Continue inpatient-level services. Continued Medication Management: Start Medication Medications: Current Medications Acetaminophen (Tylenol Tab*) 650 mg PO Q4H PRN PRN Reason: PAIN or TEMP > 101 F Al Hydrox/Mg Hydrox/Simethicone (Maalox Plus*) 30 ml PO Q4H PRN PRN Reason: INDIGESTION Bupropion HCl (Wellbutrin Xl *) 150 mg PO DAILY@09 [facility] PRN Reason: Protocol Last Admin: 03/09/17 08:31 Dose: 150 mg Device (Nicotine Mouth Piece*) 1 each INH .[facility] Hydroxyzine HCl (Atarax Tab*) 25 mg PO Q6H PRN PRN Reason: ANXIETY Last Admin: 03/06/17 05:45 Dose: 25 mg Multivitamins (Theragran Tab*) 1 tab PO DAILY [facility] Last Admin: 03/09/17 08:31 Dose: 1 tab Naltrexone HCl (Naltrexone Tab*) 50 mg PO BEDTIME [facility] PRN Reason: Protocol Last Admin: 03/08/17 20:09 Dose: 50 mg Nicotine (Nicotine Inhaler*) 10 mg INH Q2H PRN PRN Reason: CRAVING Nicotine Polacrilex (Nicotine Gum*) 2 mg PO Q2H PRN PRN Reason: CRAVING Venlafaxine HCl (Effexor Xr Cap*) 150 mg PO DAILY@09 [facility] Last Admin: 03/09/17 08:31 Dose: 150 mg - Discharge Plan Discharge Plan: Outpatient Follow Up
[2017-03-09] MEDS: Naltrexone TAB* 50 MG TAB PO SCH (20:52)
[2017-03-10] MEDS: BuPROPion XL* 150 MG TAB.XL PO SCH (08:38)
[2017-03-10] MEDS: Venlafaxine EXT RELEASE CAP* 75 MG PO SCH (08:38)
[2017-03-10] MEDS: Vitamin THERAPEUTIC TAB PO SCH (08:38)
[2017-03-10] MEDS: Naltrexone TAB* 50 MG TAB PO SCH (20:56)
[2017-03-11 07:56] VITALS: BP 116/68
[2017-03-11] MEDS: Venlafaxine EXT RELEASE CAP* 75 MG PO SCH (08:39)
[2017-03-11] MEDS: BuPROPion XL* 150 MG TAB.XL PO SCH (08:39)
[2017-03-11] MEDS: Vitamin THERAPEUTIC TAB PO SCH (08:40)
--- NOTE | 2017-03-11 12:17 | DS ---
Treatment Course & Assessment Inpatient DSM-IV Dx: MDD, recurrent, severe without psychotic features Discharge Planning - Discharge Planning Medications: Current Medications Acetaminophen (Tylenol Tab*) 650 mg PO Q4H PRN PRN Reason: PAIN or TEMP > 101 F Al Hydrox/Mg Hydrox/Simethicone (Maalox Plus*) 30 ml PO Q4H PRN PRN Reason: INDIGESTION Bupropion HCl (Wellbutrin Xl *) 150 mg PO DAILY@09 [facility] PRN Reason: Protocol Last Admin: 03/11/17 08:39 Dose: 150 mg Device (Nicotine Mouth Piece*) 1 each INH .[facility] Hydroxyzine HCl (Atarax Tab*) 25 mg PO Q6H PRN PRN Reason: ANXIETY Last Admin: 03/06/17 05:45 Dose: 25 mg Multivitamins (Theragran Tab*) 1 tab PO DAILY [facility] Last Admin: 03/11/17 08:40 Dose: 1 tab Naltrexone HCl (Naltrexone Tab*) 50 mg PO BEDTIME [facility] PRN Reason: Protocol Last Admin: 03/10/17 20:56 Dose: 50 mg Nicotine (Nicotine Inhaler*) 10 mg INH Q2H PRN PRN Reason: CRAVING Nicotine Polacrilex (Nicotine Gum*) 2 mg PO Q2H PRN PRN Reason: CRAVING Venlafaxine HCl (Effexor Xr Cap*) 150 mg PO DAILY@09 [facility] Last Admin: 03/11/17 08:39 Dose: 150 mg Discharge Planning: Prescriptions provided for discharge [] Yes [] No Follow up care details as per social work arrangements. Patient response to discharge plan: [] eager for discharge [] agreeable with discharge plan [] ambivalent about discharge [] disagrees with discharge today
== END 2017-03-11 13:00 | disposition home or self-care (01) | DRG 751 ==
LOC: ED 19:05 → BSU 03-06 05:29
PROVIDERS: ADMIT Psychiatry & Neurology Psychiatry; ATTEND Psychiatry & Neurology Psychiatry
DX: F33.2 Major depressive disorder, recurrent severe without psychotic features (principal); R45.851 Suicidal ideations; F10.20 Alcohol dependence, uncomplicated; Y90.6 Blood alcohol level of 120-199 mg/100 ml; F17.210 Nicotine dependence, cigarettes, uncomplicated; Z79.899 Other long term (current) drug therapy; Z81.1 Family history of alcohol abuse and dependence; Z81.8 Family history of other mental and behavioral disorders
CPT/HCPCS: 36415; 80053; 80320; 80329; 82607; 82746; 83605; 84439; 84443; 85025; 85610; 90853; 99222; 99231; 99238; 99406; A9270-GY; G0480